=== PATIENT | male | born 1995 | race Caucasian/White ===

== ENCOUNTER → 2017-11-05 | Outpatient (REF) ==
[~2017-11-05] MED LIST: ASPIRIN 32325 MG/TAB PO; ASPIRIN E.C. 8181 MG PO; NOVOLIN R100 U/ML SC; NOVOLOG 100U100 U/M1; PLAVIX 75MG TAB75 MG PO
[2017-11-05 12:15] LABS: CALCIUM 9.8 mg/dL (8.4-10.2); CREATININE, serum 0.83 mg/dL (0.66-1.25); POTASSIUM 3.8 mmol/L (3.4-5.0)
== END ==
LOC: ZMSC 12:01
PROVIDERS: Psychiatry & Neurology Psychiatry
DX: Z01.89 Encounter for other specified special examinations (principal)